=== PATIENT | female | born 1950 | race Caucasian/White ===

== ENCOUNTER 2019-03-01 15:04 | Emergency (ER) | payer MEDICARE, OTHER ==
[~2019-03-01] VITALS: Ht 149.9 cm; Wt 62.9 kg
[~2019-03-01 15:04] MED LIST: CYMBALTA60 MG PO; DAILY MULTIPLE1 EACH PO; ESTRACE1 MG PO; FISH OIL 1,0001 EAC5 PO; LAMICTAL XR50 MG PO; LINZESS290 MCG PO; TRIAMTERENE-HC1 EAC1 PO; VITAMIN B-12100 MCG PO; VITAMIN D1000 UNIT PO
--- OUTSIDE RECORDS SUMMARY | 2019-03-01 15:06 | XMS ---
PreManage Notification: JILL ROD Security Filtration Supervisor Events No recent Security Events currently on file [facility] MET [facility] There are no care providers on record at this time. [place] has no Care Guidelines for this patient. Blank VISIT COUNT (12 MO.) 1 JEFF Sanchez TOTAL 1 NOTE: Visits indicate total known visits. ED/UCC VISIT TRACKING (12 MO.) 03/01/2019 15:04 [facility] [place] TYPE: Emergency COMPLAINT: - ABD PAIN INPATIENT VISIT TRACKING (12 MO.) No inpatient visits to display in this time frame [id number]
== END 2019-03-01 18:30 | disposition home or self-care (01) ==
LOC: ED 15:04
DX: R10.9 Unspecified abdominal pain (principal); I10 Essential (primary) hypertension; Z90.710 Acquired absence of both cervix and uterus; Z88.5 Allergy status to narcotic agent; Z79.899 Other long term (current) drug therapy
CPT/HCPCS: 74018; 80053; 83690; 85025; 96360; 99284-25; J7030

== ENCOUNTER 2019-07-03 07:51 | Emergency (ER) | payer MEDICARE, OTHER ==
[~2019-07-03] VITALS: Ht 149.9 cm; Wt 62.9 kg
[~2019-07-03 07:51] MED LIST changes: +ALPRAZOLAM1 MG PO; +BUPRENORPHINE HC2 MG SL; +CEPHALEXIN250 MG PO; -VITAMIN B-12100 MCG PO; +VITAMIN B-121000 MCG PO; +ZOFRAN4 MG PO
--- OUTSIDE RECORDS SUMMARY | 2019-07-03 07:56 | XMS ---
PreManage Notification: JILL ROD Security Fabric Stretcher Events No recent Security Events currently on file CRITERIA MET - [facility] CARE PROVIDERS JACY LUCIANO [facility] 04/16/2019-Current PHONE: [phone] [place] has no Care Guidelines for this patient. EJoy [facility] ([facility] MO.) [facility] TOTAL 5 NOTE: Visits indicate total known visits. ED/C VISIT TRACKING (12 MO.) 07/03/2019 07:53 JEFF Breaux TYPE: Emergency COMPLAINT: - ABD PAIN POST SURGERY 06/01/2019 11:12 [facility] TYPE: Emergency DIAGNOSES: - Anorexia - Abdominal Pain - Nausea - Post-op Problem - Unspecified abdominal pain 04/28/2019 09:08 [facility] TYPE: Emergency DIAGNOSES: - Hypokalemia - Abnormal Labs 04/15/2019 11:07 [facility] [place] TYPE: Emergency COMPLAINT: - HYPONATREMIA 03/01/2019 15:04 [facility] [place] TYPE: Emergency COMPLAINT: - ABD PAIN DIAGNOSES: - Unspecified abdominal pain - Essential (primary) hypertension - Other intermodal truck driver (current) drug therapy - Allergy status to narcotic agent status - Acquired absence of both cervix and uterus INPATIENT VISIT TRACKING (12 MO.) 04/15/2019 16:49 [facility] [place] TYPE: Medical Surgical COMPLAINT: - HYPONATREMIA DIAGNOSES: - Personal history of (healed) osteoporosis fracture - Unspecified mood [affective] disorder - Other senior living (current) drug therapy - Other intermodal truck driver (current) drug therapy - Unspecified osteoarthritis, unspecified site - Hormone replacement therapy - Disorder of kidney and ureter, unspecified - Chronic kidney disease, unspecified - Polyneuropathy, unspecified - Other chronic pain - Insomnia, unspecified - Metabolic encephalopathy - 1 Hypertensive chronic kidney disease w stg 1-4/unsp chr kdny - 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 - Other chronic pain - Age-related osteoporosis w/o current pathological fracture - Hypo-osmolality and hyponatremia - Chronic kidney disease, unspecified - Epilepsy, unsp, not intractable, without status epilepticus - Age-related osteoporosis w/o current pathological fracture - Rectal prolapse - Metabolic encephalopathy - Hydronephrosis w ureteral stricture, NEC - Disease of intestine, unspecified - 1 Hypertensive chronic kidney disease w stg 1-4/unsp chr kdny - Constipation, unspecified - Disease of intestine, unspecified - Hydronephrosis w ureteral stricture, NEC - Urinary tract infection, site not specified - Epilepsy, unsp, not intractable, without status epilepticus - Polyneuropathy, unspecified - Rectal prolapse - 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
[2019-07-03] MEDS ORDERED: METOCLOPRAMIDE H5 MG PO (08:14)
[2019-07-03] MEDS ORDERED: K-TAB ER20 MEQ PO (11:41)
== END 2019-07-03 12:36 | disposition home or self-care (01) ==
LOC: ED 07:51
DX: R10.9 Unspecified abdominal pain (principal); E87.6 Hypokalemia; I10 Essential (primary) hypertension; Z90.710 Acquired absence of both cervix and uterus; Z88.5 Allergy status to narcotic agent; Z79.899 Other long term (current) drug therapy
CPT/HCPCS: 74177; 80053; 81001; 83690; 83735; 85025; 87088; 99284-25; J2405; J3480; J7030; J7060; Q9967

== ENCOUNTER 2019-08-10 07:33 | Emergency (ER) | payer MEDICARE, OTHER ==
[~2019-08-10] VITALS: Ht 149.9 cm; Wt 62.9 kg
[~2019-08-10 07:33] MED LIST changes: +K-TAB ER20 MEQ PO; +METOCLOPRAMIDE H5 MG PO
--- OUTSIDE RECORDS SUMMARY | 2019-08-10 07:36 | XMS ---
PreManage Notification: JILL ROD Security Multimedia Manager Events No recent Security Events currently on file CRITERIA MET - 6 [facility] Months [facility] JACY LUCIANO [facility] 04/16/2019-Current PHONE: [phone] [place] has no Care Guidelines for this patient. Care History Medical/Surgical 07/06/2019 [facility] - PATIENT SURGEON DR PERRY-REFERRED PATIENT TO GASTROENTEROLOGY DR BELCASTER. Parson VISIT COUNT (12 MO.) [address] TOTAL 6 NOTE: Visits indicate total known visits. ED/UCC VISIT TRACKING (12 MO.) 08/10/2019 07:34 JEFF Breaux TYPE: Emergency COMPLAINT: - NAUSEA, CONSTIPATION 07/03/2019 07:53 JEFF Breaux TYPE: Emergency COMPLAINT: - ABD PAIN POST SURGERY DIAGNOSES: - Acquired absence of both cervix and uterus - Allergy status to narcotic agent status - Hypokalemia - Unspecified abdominal pain - Other intermediate manager (current) drug therapy - Essential (primary) hypertension [facility]: Emergency DIAGNOSES: - Anorexia - Abdominal Pain - Nausea - Post-op Problem - Unspecified abdominal pain 04/28/2019 09[facility]08 [facility] TYPE: Emergency DIAGNOSES: - Hypokalemia - Abnormal Labs 04/15/2019 11:07 JEFF Breaux TYPE: Emergency COMPLAINT: - HYPONATREMIA 03/01/2019 15:04 JEFF Breaux TYPE: Emergency COMPLAINT: - ABD PAIN DIAGNOSES: - Unspecified abdominal pain - Essential (primary) hypertension - Other intermediate manager (current) drug therapy - Allergy status to narcotic agent status - Acquired absence of both cervix and uterus INPATIENT VISIT TRACKING (12 MO.) 04/15/2019 16:[address] [facility] [place] TYPE: Medical Surgical COMPLAINT: - HYPONATREMIA DIAGNOSES: - Personal history of (healed) osteoporosis fracture - Unspecified mood [affective] disorder - Other [facility] (current) drug therapy - Other [facility] (current) drug therapy - Unspecified osteoarthritis, unspecified site - Hormone replacement therapy - Disorder of kidney and ureter, unspecified - Chronic kidney disease, unspecified - Polyneuropathy, unspecified - Other chronic pain - Insomnia, unspecified - Metabolic encephalopathy - 1 Hypertensive chronic kidney disease w stg -4/unsp chr kdny - Other obstructive defects of [...] 1 Hypertensive chronic kidney disease w stg -4/unsp chr kdny - Constipation, unspecified - Disease [...] of diseases classd elswhr - Insomnia, unspecified [id number]
[2019-08-10] MEDS ORDERED: LAMICTAL XR25 MG PO (08:00)
[2019-08-10] MEDS ORDERED: COLACE100 MG PO (09:05)
== END 2019-08-10 09:20 | disposition home or self-care (01) ==
LOC: ED 07:33
DX: K59.00 Constipation, unspecified (principal); I10 Essential (primary) hypertension; Z88.5 Allergy status to narcotic agent; Z79.899 Other long term (current) drug therapy
CPT/HCPCS: 74022; 99283-25

== ENCOUNTER 2019-08-12 16:53 | Emergency (ER) | payer MEDICARE, OTHER ==
[~2019-08-12] VITALS: Ht 149.9 cm; Wt 62.9 kg
[~2019-08-12 16:53] MED LIST changes: +COLACE100 MG PO; +LAMICTAL XR25 MG PO
--- OUTSIDE RECORDS SUMMARY | 2019-08-12 16:56 | XMS ---
PreManage Notification: JILL ROD Security Planning Official Events No recent Security Events currently on file CRITERIA MET - 6 ED Visits in 6 Months - [facility] - 2 Visits in 30 Days CARE PROVIDERS JACY LUCIANO [facility] 04/16/2019-Current PHONE: [phone] [place] has no Care Guidelines for this patient. Care History Medical/Surgical 07/06/2019 [facility] - PATIENT SURGEON DR PERRY-REFERRED PATIENT TO GASTROENTEROLOGY DR BREWSTER. Blank VISIT COUNT (12 MO.) [address] TOTAL 7 NOTE: Visits indicate total known visits. ED/UCC VISIT TRACKING (12 MO.) 08/12/2019 16:55 [facility] [place] TYPE: Emergency COMPLAINT: - CRAMPING, BOWL PROBLEMS 08/10/2019 07:34 [facility] [place] TYPE: Emergency COMPLAINT: - NAUSEA, CONSTIPATION 07/03/2019 07:53 [facility] [place] TYPE: Emergency COMPLAINT: - ABD PAIN POST SURGERY DIAGNOSES: - Acquired absence of both cervix and uterus - Allergy status to narcotic agent status - Hypokalemia - Unspecified abdominal pain - Other halfway (current) drug therapy - Essential (primary) hypertension [facility]01/2019 11:[facility] TYPE: Emergency DIAGNOSES: - Anorexia - Abdominal Pain - Nausea - Post-op Problem - Unspecified abdominal pain 04/28/2019 09:08 [facility] TYPE: Emergency DIAGNOSES: - Hypokalemia - Abnormal Labs 04/15/2019 11:07 JEFF Breaux TYPE: Emergency COMPLAINT: - HYPONATREMIA 03/01/2019 15:04 JEFF Breaux TYPE: Emergency COMPLAINT: - ABD PAIN DIAGNOSES: - Unspecified abdominal pain - Essential (primary) hypertension - Other halfway (current) drug therapy - Allergy status to narcotic agent status - Acquired absence of both cervix and uterus INPATIENT VISIT TRACKING (12 MO.) 04/15/2019 16:49 [facility] [place] TYPE: Medical Surgical COMPLAINT: - HYPONATREMIA DIAGNOSES: - Personal history of (healed) osteoporosis fracture - Unspecified mood [affective] disorder - Other terminal make up operator (current) drug therapy - Other halfway (current) drug therapy - Unspecified osteoarthritis, unspecified site - Hormone replacement therapy - Disorder of kidney and ureter, unspecified - Chronic kidney disease, unspecified - Polyneuropathy, unspecified - Other chronic pain - Insomnia, unspecified - Metabolic encephalopathy - 1 Hypertensive chronic kidney disease w 09-19/unsp chr kdny - Other obstructive defects of [...] 1 Hypertensive chronic kidney disease w stg -/unsp chr kdny - Constipation, unspecified - Disease [...] of diseases classd elswhr - Insomnia, unspecified [id number]
[2019-08-12] MEDS ORDERED: K-TAB ER20 MEQ PO (20:09)
== END 2019-08-12 23:40 | disposition home or self-care (01) ==
LOC: ED 16:53
DX: K59.00 Constipation, unspecified (principal); E87.6 Hypokalemia; I10 Essential (primary) hypertension; Z88.5 Allergy status to narcotic agent; Z79.899 Other long term (current) drug therapy
CPT/HCPCS: 80053; 83690; 83735; 85025; 96365; 96366; 96375; 99284-25; J2405; J3480; J7040

== ENCOUNTER 2022-10-06 11:02 | Emergency (ER) | payer MEDICARE, OTHER ==
[~2022-10-06] VITALS: Ht 149.9 cm; Wt 58.3 kg
--- OUTSIDE RECORDS SUMMARY | 2022-10-06 11:07 | XMS ---
PreManage Notification: JILL ROD Security Sql Report Developer Events No recent Security Events currently on file CRITERIA MET - [facility] CARE PROVIDERS MUSTAPHAJACY [facility] 04/16/2019-Current PHONE: [facility] CE[facility]ILVER[facility] PHONE: Unknown [place] has no Care Guidelines for this patient. Care History Medical/Surgical 07/06/2019 [facility] - PATIENT SURGEON DR PERRY-REFERRED PATIENT TO GASTROENTEROLOGY DR BREWSTER. Blank VISIT COUNT (12 MO.) [address] [place] [address] TOTAL 1 NOTE: Visits indicate total known visits. ED/UCC VISIT TRACKING (12 MO.) 10/06/2022 11:05 JEFF Breaux TYPE: Emergency COMPLAINT: - SWOLLEN ABD, NAUSEA, DISCOMFORT, DISORIENTED INPATIENT VISIT TRACKING (12 MO.) 06/02/2022 06:12 [facility] TYPE: Surgery DIAGNOSES: 68375. CONSTIPATION FROM COLONIC INTERTIA [id number]. Slow transit constipation [id number]
[2022-10-06] MEDS ORDERED: DULOXETINE HCL60 MG PO (11:26)
[2022-10-06] MEDS ORDERED: PREGABALIN50 MG PO (11:27)
[2022-10-06] MEDS ORDERED: OMEPRAZOLE20 MG PO (11:27)
[2022-10-06] MEDS ORDERED: HYDROCODON-ACE1 EAC8 PO (11:27)
[2022-10-06] MEDS ORDERED: TRIAMTERENE-HC1 EAC3 PO (11:27)
== END 2022-10-06 16:04 | disposition home or self-care (01) ==
LOC: ED 11:02
DX: R10.9 Unspecified abdominal pain (principal); E86.0 Dehydration; I10 Essential (primary) hypertension; Z88.5 Allergy status to narcotic agent; Z79.899 Other long term (current) drug therapy
CPT/HCPCS: 36415; 80053; 81001; 83690; 85025; 96374; 99284-25; J2405; J7030

== ENCOUNTER 2023-01-30 16:41 | Inpatient (IN) | payer MEDICARE, OTHER ==
[~2023-01-30] VITALS: Ht 149.9 cm; Wt 58.1 kg
[~2023-01-30 16:41] MED LIST changes: +DULOXETINE HCL60 MG PO; +HYDROCODON-ACE1 EAC8 PO; +OMEPRAZOLE20 MG PO; +PREGABALIN50 MG PO; +TRIAMTERENE-HC1 EAC3 PO
--- OUTSIDE RECORDS SUMMARY | 2023-01-30 16:44 | XMS ---
PreManage Notification: JILL ROD Security Laminating Machine Offbearer Events No recent Security Events currently on file CRITERIA MET - [facility] CARE PROVIDERS MUSTAPHAJACY [facility] 04/16/2019-Current PHONE: [facility] Current CECE SILVERMAN PHONE: Unknown [place] has no Care Guidelines for this patient. Care History Medical/Surgical 07/06/2019 [facility] - PATIENT SURGEON DR PERRY-REFERRED PATIENT TO GASTROENTEROLOGY DR BREWSTER. Blank VISIT COUNT (12 MO.) 2 [facility] TOTAL 2 NOTE: Visits indicate total known visits. ED/UCC VISIT TRACKING (12 MO.) 01/30/2023 16:[address] [facility] [place] TYPE: Emergency COMPLAINT: - WEAKNESS 10/06/2022 11:05 [facility] [place] TYPE: Emergency COMPLAINT: - SWOLLEN ABD, NAUSEA, DISCOMFORT, DISORIENTED DIAGNOSES: - Allergy status to narcotic agent - Dehydration - Essential (primary) hypertension - Other skilled nursing (current) drug therapy - Unspecified abdominal pain INPATIENT VISIT TRACKING (12 MO.) 06/02/2022 06:12 [facility] TYPE: Surgery DIAGNOSES: 16851. CONSTIPATION FROM COLONIC INTERTIA 96144. Slow transit constipation [email or web address]
--- NOTE | 2023-01-30 21:20 | NUR ---
PT ADMITTED TO ROOM 129 FOR [facility] CONVENIENCE FOR DIAGNOSIS OF ENCEPHALOPATHY THAT STARTED EARLIER TODAY ACCORDING TO THE . PT ARRIVES ALONE, SHE IS RESTLESS AND CONFUSED. SHE CAN ANSWER SOME QUESTIONS APPROPRIATELY, IE SHE KNOWS SHE IS IN THE [facility], BUT ALSO IS DISORIENTED TO SITUATION AND SOME OF HER STATEMENTS DO DO NOT MAKE SENSE- "IM TRYING TO MAKE MY BED ROLL BACK AND FORTH" AND INSISTING THAT HER BED IS WET UNDERNEATH WHEN IT IS DRY. PT C/O BACK PAIN, 2 TABS NORCO GIVEN. WHEN ASKED HOW MANY NORCO SHE TAKES PER DAY SHE STATES "FIVE, ONE AT A TIME BUT SOMETIMES WHEN IT REALLY HURST I WILL TAKE TWO". PT IS PLEASANT AND LAUGHING AT TIMES, TRYING TO RELAY STORIES BUT NOT ABLE TO VERBALIZE COMPLETE THOUGHTS, THEN LAUGHS AND STATES "YOU THINK I'M CRAZY DON'T YOU".
[2023-01-30 22:00] VITALS: BP 157/75
--- NOTE | 2023-01-30 22:05 | NUR ---
PT SUDDENLY SOBBING, ASKING WHERE HER IS. REASSURED HER THAT HE WENT HOME TO GET SOME REST AND HE HAS BEEN CALLING TO CHECK ON HER AND SHE CALMS DOWN AND GOES BACK TO RESTLESSLY MOVING LEGS AROUND IN BED.
--- NOTE | 2023-01-30 22:46 | NUR ---
PT USED CALL LIGHT TO USE BEDPAN, BEDPAN PLACED AND PT SAT ONIT APPROX 10 MINUTES, WAS NOT ABLE TO VOID. LIGHTS TURNED OUT, BED ALARM ON, PT AGREES TO TRY TO LIE DOWN TO SLEEP, CALL LIGHT IN REACH.
[2023-01-31] VITALS: BP 147/57
--- NOTE | 2023-01-31 02:12 | NUR ---
PT HAS CALLED SEVERAL TIMES IN THE LAST HOUR FOR THINGS LIKE WANTING TO BURP HER OSTOMY BAG, WANTING THE RN TO SIT IN THE ROOM AND TALK WITH HER, AND TO REPORT THAT SHE WAS HALLUCINATING.
[2023-01-31 04:09] VITALS: BP 148/58
--- NOTE | 2023-01-31 06:45 | NUR ---
PT HAD NOT VOIDED, C/O DISCOMFORT IN BACK THAT SHE STATES WAS SIMILAR TO WHEN SHE WAS RETAINING URINE DURING SOME PRIOR TIME, BLADDER SCAN DONE SHOWS 400ML. PT ASSISTED UP TO BSC AND SAT ON IT FOR APPROX 15MIN WITH NO VOID. ASSISTED UP TO RECLINER. PT IS ASKING ABOUT HER AGAIN, BECOMES VERY UPSET WHEN REMINDED THAT HE SAID HE WOULD BE HERE IN A FEW HOURS. TV TURNED ON AND PT CALMS DOWN AND STATES SHE CAN WATCH TV WHILE SHE WAITS.
--- NOTE | 2023-01-31 07:00 | NUR ---
ASSISTED CHANO DUKE TO HELP PT FROM BSC TO . CALL LIGHT IN REACH - PT WEAK, AND CONFUSED, NOT ABLE TO URINATE AT THIS TIME. COMPLAINS OF CHRONIC PAIN.
--- NOTE | 2023-01-31 08:30 | NUR ---
PATIENT AWAKE IN RECLINER, TEARFUL AND CALLING OUT. THIS PROMOTIONS OFFICER IN ROOM, VISITING WITH PATIENT, "I'M NOT CRAZY, I JUST WANT SOMEONE TO LISTEN TO ME." VITALS CHARTED, WARM PACK PROVIDED FOR HER BACK. PATIENT CONTINUES TO ASK FOR HER AND SON. WILL BE IN THIS MORNING. CALL LIGHT IN EASY REACH
--- NOTE | 2023-01-31 08:35 | NUR ---
Spoke with Neema. She is sitting in a chair with her head on a overbed table. She states she shouldn't be here. She is unsure where she is, why she is here, she is not oriented. She states she lives in a house with 2 steps and uses a walker and a cane. When she is at the store she holds onto her spouse's hand or onto the grocery cart. She attempts to tell me why she has chronic pain and states she was, "hurt reginomian". She states she must have all her pain meds due to her pain. She frequently repeats, "Just a second, just a second, just a second". She states he spouse delivers mail at [facility] [employer] an is unavailable. I attempted to call and cannot reach. Will cont. at attempt or see family when they arrive.
--- NOTE | 2023-01-31 09:21 | NUR ---
pt up in , confused, calling out for bobby - yelling that he would never leave her here - asking to talk to the boss, complaining of 10/10 generalized pain - po meds given see emar. pt flight of ideas and discussion - moans then stops and talks about her .
--- NOTE | 2023-01-31 09:24 | NUR ---
pt here - pt confused tearful, set up with chair at side,
--- NOTE | 2023-01-31 10:40 | NUR ---
dr drew in with pt and and this rn for rounds. pt in , confused, just voided 425 ml urine in bsc.
[2023-01-31 12:20] VITALS: BP 183/83
--- NOTE | 2023-01-31 12:30 | NUR ---
PATIENT AWAKE IN CHAIR, REFUSED LUNCH. CHOCOLATE ENSURE PROVIDED. CALL LIGHT IN EASY REACH, WARM PACK PROVIDED FOR BACK PAIN.
[2023-01-31] MEDS ORDERED: PREGABALIN100 MG PO (13:11)
[2023-01-31] MEDS ORDERED: LAMOTRIGINE100 MG PO (13:11)
[2023-01-31] MEDS ORDERED: HYDROCODON-ACE1 EA10 PO (13:12)
[2023-01-31] MEDS ORDERED: BACLOFEN10 MG PO (13:13)
--- NOTE | 2023-01-31 13:14 | NUR ---
MED REC COMPLETE
--- NOTE | 2023-01-31 13:25 | NUR ---
RESPONDED TO PTS' CALL FOR SOME ATTENTION. PT SAID SHE'S IN PAIN, WANTS TO GO HOME AND IS WANTING TO SEE HER . RN LEILANI INFORMED PT HER HAD CALLED EARLIER AND WOULD BE IN SOON. PT NEEDED A TIME-WE AGREED AROUND 9 AM. SHE FELT CALMER. PT IS CONFUSED, CONCERNED THE IV PUMP IS NOT WORKING. LEILANI RN ALSO CHECK THIS WHILE SHE WAS IN . ASKED PT IF I COULD PRAY FOR HER-SHE STATED NO BECAUSE IT IS JUST PROTOCOL. SHE CONSENTED WHEN I TOLD HER I DON'T HAVE TO, I CHOOSE TO BECUSE I BELIEVE IN PRAYER. THEN IT WAS OK. GAVE PAULETTE PT SAID SHE WANTED IT ON HER FEET-THEY WERE COLD. GAVE BLESSING WILL FOLLOW
--- NOTE | 2023-01-31 13:28 | NUR ---
TYRELL FROM PHARMACY IN ROOM SPEAKING WT PT AND HER , ESE. PT CONTINUES SITTING UPRIGHT IN RECLINER, IN VIEW OF NURSE STATION, CALL LIGHT IN REACH.
--- NOTE | 2023-01-31 14:24 | NUR ---
MED REC COMPLETE
--- NOTE | 2023-01-31 14:36 | NUR ---
pt sitting in chair and continues to be confused - in room at side to keep company and re orient.
--- NOTE | 2023-01-31 15:15 | NUR ---
OSTOMY EMPTIED AND CHARTED. PATIENT SITTING IN RECLINER, LEGS ELEVATED. CALL LIGHT IN EASY REACH
[2023-01-31 16:32] VITALS: BP 181/80
--- NOTE | 2023-01-31 16:59 | NUR ---
pt very confused, max assist from chair to bsc to attempt to void. po pain med given for chronic use and 10/10 generalized pain - enc water intake, pt argues that dr urena machine does not work in [place] and her pain dr needs to be called right away. rn attemped to fax an call clinic at [facility] for records no answer see fax confirmation in chart. declines dinner - provided fruit, apple sauces, ellen ensure and salad - pt denies all. bladder scan pre bsc showed 300 ml in bladder - pt was unable to void at this time and miguel care was done, returned to chair - call light in reach.
--- NOTE | 2023-01-31 18:00 | NUR ---
RECEIVED REPORT FROM SHYANN King RN. PT IS IN ROOM SITTING UPRIGHT IN CHAIR, HAS MAINTENANCE FLUIDS INFUSING. PER SHYANN PT HAS NOT VOIDED SINCE LATE MORNING, 425 ML WHEN PT SAT ON COMMODE. PT HAS BEEN BLADDER SCANNED AND HAS ABOUT 300 ML, HX OF BLADDER RETENTION, PROLAPSE REPAIR ETC. PT DENIES NEED TO VOID. SPOUSE GOVIND IN ROOM CONVERSING WITH PT.
--- NOTE | 2023-01-31 20:00 | NUR ---
RECIEVED REPORT ON PT, FAMILY WAS IN ROOM AT THE TIME OF REPORT, FAMILY LEFT SHORTLY AFTER REPORT WAS GIVEN, ASSESSED PT, PT IS CONFUSED TO EVENT AND TIME, PT IS FIXATED ON OBJECTS IN THE ROOM AND MEDICATIONS, REPEATEDLY TRYING TO RE-ORIENT PT, WILL CONTINUE TO ANSWER QUESTIONS AND RE-DIRECT PT, WILL NOTIFY PROVIDER WITH ANY CHANGES IN PT STATUS.
[2023-01-31 20:17] VITALS: BP 173/79
--- NOTE | 2023-01-31 22:39 | NUR ---
UPDATE GIVEN TO ; SPECIFICALLY PATIENT'S NEURO STATUS AND INABILITY TO REST. MELATONIN ORDERED; SEE EMAR.
[2023-02-01] VITALS (13 sets, daily range): BP systolic 112–208; BP diastolic 49–102
--- NOTE | 2023-02-01 06:29 | NUR ---
NO SIGNIFICANT CHANGES OVER COSTUME TECHNICIAN, PT IS STILL CONFUSED AND HARD TO RE-ORIENT/REDIRECT, PT STILL FIXATED ON MONITORS AND SIGNS IN ROOM, 2P ASSIST TO BSC, LOTS OF DIRECTIONS NEEDED, PT REFUSED MELATONIN AND SLEPT MINIMAL, WILL DISCUSS PLAN OF CARE WITH DAY SHIFT, WILL NOTIFY PROVIDER WITH ANY CHANGES IN PT STATUS.
--- NOTE | 2023-02-01 07:43 | NUR ---
REPORT RECEIVED FROM DARREN MADDEN. PT AWAKE IN BED, WATCHING TV, RESP EVEN AND UNLABORED, APPEARS COMFORTABLE.
--- NOTE | 2023-02-01 08:30 | NUR ---
IN TO OFFER PT BREAKFAST, SHE IS WATCHING TV IN BED, DECLINES BREAKFAST AT THIS TIME, STATES SHE WOULD PREFER A CHOCOLATE PREMIER NUTRITIONAL SHAKE, CHOCOLATE ENSURE BROUGHT TO HER, ASSESSMENT DONE.
--- NOTE | 2023-02-01 09:00 | NUR ---
DR BEAVER IN TO ROUND ON PT, PT REMAINS AWAKE IN BED, TALKING WITH DR BEAVER. PLAN FOR MRI LATER TODAY, ALSO IN NOW AND PLAN OF CARE DISCUSSED WITH HIM WELL.
--- NOTE | 2023-02-01 09:40 | NUR ---
IN TO GIVE PT HER AM MEDICATIONS, INCLUDING NORCO FOR BACK PAIN. PT IS UP ON COMMODE, ASSISTED BACK TO BED.
--- NOTE | 2023-02-01 10:02 | NUR ---
PATIENT AWAKE IN BED, IN ROOM. TRAN[facility] [place] [facility] FOR [facility]AFETY, PATIENT C/O PAIN "EVERYWHERE" WITH ACTIVTY. PATIENT NOW BACK IN BED, RIGHT ARM ON PILLOW. LINEN CHANGED. BREAKFAST REFUSED--LD ENSURE PROVIDED.
--- NOTE | 2023-02-01 10:19 | NUR ---
SPOKE TO PATIENT AND HER ABOUT THE FUTURE DISCHARGE PLAN. PATIENT WILL BE HAVING A MRI TODAY. PATIENT'S STATES THAT THE PATIENT IS USUALLY ORIENT X3.PATIENT GETS AROUND WITH A WALKER AND PATIENT IS ABLE TO DO HER ADLS WITH HELP FROM HER . PATIENT'S IS WORRIED ABOUT THE FACT THAT HIS IS NOT CLEARING. THE PATIENT IS HAVING A MRI TODAY.
--- NOTE | 2023-02-01 10:30 | NUR ---
ASSISTED WITH FILLING OUT MRI FORM AND ANSWERING QUESTIONS REGARDING PTS HX.
--- NOTE | 2023-02-01 10:45 | NUR ---
PT WORKING WITH PHYSICAL THERAPIST.
--- NOTE | 2023-02-01 11:10 | NUR ---
PT IN BED VISITING WITH HER . HAD PLEASANT VISIT WITH BOTH-PT CONFUSED SOMEWHAT. BOTH REQUESTED PRAYER, THANKED ME. GAVE BLESSING AND WILL FOLLOW
--- NOTE | 2023-02-01 11:30 | NUR ---
IS LEAVING FOR A WHILE, STATES HE WILL BE BACK LATER, PT AWAKE IN BED WATCHING TV.
--- NOTE | 2023-02-01 12:30 | NUR ---
PT CAME BACK FROM MRI WITH CCU RN, PT IS GURGLING FROM THROAT, UNRESPONSIVE, PT TRANSFERRED OVER TO BED FROM [facility], SHE STARTED VOMITING DURING TRANSFER OVER, PT IMMEDIATLEY WAS PLACED INTO AN UPRIGHT POSITION AND SUCTIONED, PLACED ON HEART MONITOR AND SPO2 MONITORING, VSS ON ROOM AIR. PT DOES REMAIN UNRESPONSIVE, RAPID RESPONSE CALLED, DR BEAVER CALLED TO COME AND ASSESS PT. CODE STROKE CALLED WELL D/T PTS SUDDEN CHANGE IN NEURO STATUS. PT IS BREATHING ON HER OWN, HR 70'S BUT IS UNAROUSABLE TO ANY STIMULUS EVEN PAINFUL STIMULI. BLOOD GLUCOSE WAS CHECKED WNL.
--- NOTE | 2023-02-01 12:57 | NUR ---
PT BACK FROM CT, DR BEAVER TALKING WITH NEUROLOGISTS TRYING TO GET PT TRANSFERRED D/T BRAIN HEMMORHAGE NOTED ON MRI/CT. BP 186/87, HR 85, RR 12 AND SPO2 96% ON ROOM AIR.
--- NOTE | 2023-02-01 13:05 | NUR ---
CALLED TO UPDATE HIM ON PTS CHANGE, DR BEAVER TALKED WITH WHO IS ON HIS WAY IN.
--- NOTE | 2023-02-01 13:15 | NUR ---
PT HAVING LONGER AND LONGER PERIODS OF APNEIC PERIODS, DR BEAVER INFORMED, DECISION MADE TO INTUBATE PT. RAPID RESPONSE CALLED D/T NEED TO INTUBATE PT. DR BEAVER CONTINUES TO CONSULT WITH NEUROLOGIST, ROBOT USED, CONT PLAN TO TRANSFER PT, WAITING ON BEDSPACE. [facility] CALLED FOR ANTICIPATED TRANSFER OUT.
--- NOTE | 2023-02-01 13:22 | NUR ---
PT INTUBATED BY ED MD. ETOMIDATE AND SUCC USED. ETT 7.0, 20CM AT THE GUMS.
--- NOTE | 2023-02-01 13:35 | NUR ---
NICARDIPINE DRIP STARTED AT 5MG/HR, PLAN TO KEEP SBP BELOW 140MMHG. OG TUBE PLACED, HERNANDEZ PLACED. 3RD IV SITE STARTED IN LEFT FOREARM.
--- NOTE | 2023-02-01 13:40 | NUR ---
CHEST XRAY DONE TO VERIFY TUBE PLACEMENT, PROPOFOL DRIP STARTED AND NICARDIPINE DRIP BEING TITRATED UP.
--- NOTE | 2023-02-01 13:50 | NUR ---
[facility] ARRIVES, REPORT GIVEN TO [facility]. NICARDIPINE DRIP NOW AT 12.5MG/HR.
--- NOTE | 2023-02-01 14:00 | NUR ---
MANNITOL INFUSION STARTED
--- NOTE | 2023-02-01 14:10 | NUR ---
PT SWITCHED OVER TO [facility] VENTIALATOR AND DRIPS.
--- NOTE | 2023-02-01 14:25 | NUR ---
BPS HAVE COME DOWN, NICARDIPINE IS DOWN TO 12.5MG/HR, MANITOL COMPLETED, FENTANYL DRIP STARTED AT 1MCG/KG/HR.
--- NOTE | 2023-02-01 14:41 | NUR ---
1000MG KEPPRA GIVEN, PT TRANSFERRED TO [facility].
--- NOTE | 2023-02-01 14:45 | NUR ---
PT LEFT WITH [facility] CREW TO LEONEL TRIPLETT. REPORT CALLED TO LEONEL TRIPLETT RN.
== END 2023-02-01 14:45 | disposition short-term general hospital (02) | DRG 70 ==
LOC: ED 16:41 → CCU 16:43
PROVIDERS: ADMIT Internal Medicine; ATTEND Family Medicine
PROC: 0T9B70Z Drainage of Bladder with Drainage Device, Via Natural or Artificial Opening (ICD-10-PCS; principal; 2023-02-01)
PROC: 0BH18EZ Insertion of Endotracheal Airway into Trachea, Via Natural or Artificial Opening Endoscopic (ICD-10-PCS; 2023-02-01)
PROC: 4A13XR1 Monitoring of Arterial Saturation, Peripheral, External Approach (ICD-10-PCS; 2023-02-01)
DX: G93.41 Metabolic encephalopathy (principal); I61.9 Nontraumatic intracerebral hemorrhage, unspecified; F41.9 Anxiety disorder, unspecified; I10 Essential (primary) hypertension; G40.909 Epilepsy, unspecified, not intractable, without status epilepticus; G89.4 Chronic pain syndrome; E86.0 Dehydration; M81.0 Age-related osteoporosis without current pathological fracture; M19.90 Unspecified osteoarthritis, unspecified site; M85.80 Other specified disorders of bone density and structure, unspecified site; Z90.710 Acquired absence of both cervix and uterus; Z93.2 Ileostomy status; Z90.49 Acquired absence of other specified parts of digestive tract; Z96.653 Presence of artificial knee joint, bilateral; Z88.5 Allergy status to narcotic agent; Z98.890 Other specified postprocedural states; Z96.612 Presence of left artificial shoulder joint; Z87.448 Personal history of other diseases of urinary system; Z90.722 Acquired absence of ovaries, bilateral; Z79.891 Long term (current) use of opiate analgesic; Z79.899 Other long term (current) drug therapy
CPT/HCPCS: 31500; 36415; 36600; 51702; 51798; 70450; 70551; 71045; 80048; 80053; 81003; 82803; 83605; 83735; 84484; 85025; 85610; 85730; 96372; 96374; 96376; 99285-25; A9270; G0378; J0330; J1650; J1953; J2704; J3010; J3480; J7030; J7060; J7120; J7121